=== PATIENT | male | born 1930 | race Caucasian/White ===

== ENCOUNTER 2019-03-10 12:21 | Emergency (ER) | payer MEDICARE, OTHER ==
[2019-03-10 12:37] VITALS: BP 134/77
--- NOTE | 2019-03-10 12:51 | ED Physician Documentation ---
PD HPI LOWER EXT INJURY - Stated complaint Stated Complaint: L FOOT TOE INJ - Chief complaint Chief Complaint: Ext Problem - History obtained from History obtained from: Patient - History of Present Illness PD HPI LOW EXT INJURY LOCATION: Left (He was putting on his pants yesterday and fell he does not know how he injured his toes on the left no other injuries. Pain is mild to moderate.) Review of Systems Constitutional: reports: Reviewed and negative Throat: reports: Reviewed and negative Cardiac: reports: Reviewed and negative Respiratory: reports: Reviewed and negative PD PAST MEDICAL HISTORY - Past Medical History Cardiovascular: Hypertension, High cholesterol, Coronary artery disease Other Past Medical History: prostate ca - Past Surgical History Cardiovascular: Coronary stent, Cardiac catheterization - Allergies Allergies/Adverse Reactions: Allergies Allergy/AdvReac Type Severity Reaction Status Date / Time levofloxacin [From Levaquin] Allergy Rash Verified 03/10/19 12:27 - Social History Does the pt smoke?: No Smoking Status: Never smoker Does the pt drink ETOH?: No Does the pt have substance abuse?: No PD ED PE NORMAL - Vitals Vital signs reviewed: Yes - General General: Alert and oriented X 3, No acute distress - Extremities Extremities: Other (The fourth and fifth toes of the left foot are all ecchymotic. There is no deformity. The third toe is tender, the fourth toe is not. No other foot or toe tenderness.) - Neuro Neuro: Alert and oriented X 3, Normal speech Results - Vitals Vitals: Vital Signs - 24 hr 03/10/19 12:25 Temperature 36.0 C L Heart Rate 82 Respiratory 19 Rate Blood Pressure 134/77 H O2 Saturation 98 Oxygen O2 Source Room air - Rads (name of study) 3v L foot Radiology: EMP read contemporaneously (no frx) PD MEDICAL DECISION MAKING - ED course ED course: 88-year-old gentleman with 2 sprain toes from an accident yesterday. No other injuries. Neurovascular function is intact. He is lolis taped and placed in a fracture shoe for comfort. Departure - Departure Disposition: 01 Home, Self Care Clinical Impression: Sprain of third toe, left, Sprain of fourth toe, left Condition: Good Record reviewed to determine appropriate education?: Yes Instructions: ED Sprain Toe Comments: Return for new worsening symptoms. Follow-up with your doctor in 1 to 2 weeks if not improving. You may walk and bear weight as tolerated. You can keep the toes taped together and wear the special shoe for comfort as shown. Your blood pressure was elevated today on check into the emergency department. This does not mean that you have hypertension, it is a common phenomenon to come to the emergency department and have elevated blood pressure. I recommend that you see your primary care physician within the week to have it rechecked when you are feeling better. Discharge Date/Time: 03/10/19 13:20
--- NOTE | 2019-03-10 13:34 | XRAY Report ---
Reason: 3rd / 4th toe inj Procedure Date: 03/10/2019 Accession Number: [id number] / [id number] Procedure: XR - Foot 3 View LT CPT Code: FULL RESULT: EXAM: LEFT FOOT RADIOGRAPHY EXAM DATE: 03/10/2019 01:03 PM. CLINICAL HISTORY: 3rd / 4th toe inj. COMPARISON: None. TECHNIQUE: 3 views. FINDINGS: Bones: Osteopenia No fractures or bone lesions. Joints: Normal. No subluxations. Soft Tissues: Distal peripheral vascular calcifications No soft tissue swelling. IMPRESSION: Osteopenia RADIA
== END 2019-03-10 13:20 | disposition home or self-care (01) ==
LOC: ED 12:21
DX: S93.505A Unspecified sprain of left lesser toe(s), initial encounter (principal); W01.0XXA Fall on same level from slipping, tripping and stumbling without subsequent striking against object, initial encounter; Y93.89 Activity, other specified; I10 Essential (primary) hypertension; M85.872 Other specified disorders of bone density and structure, left ankle and foot
CPT/HCPCS: 99282; 99283